=== PATIENT | male | born 1990 | race Caucasian/White ===

== ENCOUNTER 2022-11-26 19:23 | Emergency (ER) | payer OTHER, SELFPAY ==
[2022-11-26] VITALS (8 sets, daily range): BP systolic 118–150; BP diastolic 75–94; PULSE 58–79; RESP 14–19; TEMP 36.3; O2SAT 97–100
--- NOTE | ~2022-11-26 | XR_ITS ---
EXAMINATION: XR chest 2V Exam Date/Time: 11/26/2022 19:33 CDT HISTORY: chest pain Comparison: None. RESULT: Lines, tubes, and devices: None. Lungs and pleura: Clear. Cardiomediastinal silhouette: Unremarkable. Other: No acute osseous or upper abdominal finding. IMPRESSION: No acute cardiopulmonary process. Reviewed, dictated and finalized at location K.
--- NOTE | 2022-11-26 19:30 | ECG_ITS ---
Measurements Intervals [place] Rate: 70 P: 12 AL: 156 QRS: 54 QRSD: 93 T: 59 QT: 360 QTc: 390 Interpretive Statements SINUS RHYTHM NO PREVIOUS ECG AVAILABLE FOR COMPARISON Electronically Signed On 11-27-2022 15:55:56 CDT by Sheng Story M.D.
[2022-11-26 19:49] LABS: Basophils Absolute Auto 0.1 K/mm3 (0.0-0.1); Basophils Percent Auto 0.6 % (0.2-1.2); Eosinophils Absolute Auto 0.3 K/mm3 (0-0.3); Eosinophils Percent Auto 3.5 % (0-4.4); Hemoglobin 15.4 g/dL (14.0-18.0); Immature Granulocyte Absolute 0.05 K/mm3 (0.00-0.031); Immature Granulocyte Percent A 0.6 % (0-0.5); Lymphocytes Absolute Auto 2.17 K/mm3 (0.9-3.2); Lymphocytes Percent Auto 24.6 % (18.3-44.2); Mean Corpuscular HGB Conc 33.5 g/dl (32-36); Mean Corpuscular Hemoglobin 28.8 pg (26-34); Mean Corpuscular Volume 86.1 fl (80-100); Mean Platelet Volume 8.9 fl (7.4-10.4); Monocytes Absolute Auto 0.4 K/mm3 (0.1-0.6); Monocytes Percent Auto 4.2 % (2.6-8.5); Neutrophils Absolute Auto 5.9 K/mm3 (1.3-6.7); Neutrophils Percent Auto 66.5 % (45.5-73.1); Platelet Count Result 413 k/mm3 (150-375); Red Blood Count 5.34 M/mm3 (4.6-6.20); Red Cell Distribution Width 12.9 % (11.5-14.5); White Blood Count 8.8 K/mm3 (4.5-10.0)
[2022-11-26 19:59] LABS: Alanine Aminotransferase 37 U/L (6-50); Albumin Level 4.2 g/dL (3.5-5.1); Alkaline Phosphatase 65 U/L (38-126); Anion Gap 9 mmol/L (8-16); Aspartate Amino Transferase 26 U/L (17-59); Bilirubin,Total 0.6 mg/dL (0.2-1.3); Blood Urea Nitrogen 12 mg/dL (9-20); Calcium 8.8 mg/dL (8.4-10.2); Carbon Dioxide 27 mmol/L (22-30); Chloride 101 mmol/L (98-107); Estimated CRCL calculation 138 ml/min; Estimated Glomerular Filt Rate > 60; Glucose 115 mg/dL (65-110); Lipase 78 U/L (23-300); Potassium 3.5 mmol/L (3.4-5.0); Sodium 137 mmol/L (137-145)
[2022-11-26 20:03] LABS: INR 1.1; Partial Thromboplastin Time 27.5 SECONDS (22.3-36.8); Prothrombin Time 14.5 Seconds (11.1-14.7)
[2022-11-26 20:11] LABS: Troponin I < 0.012 ng/mL (0.000-0.034)
--- NOTE | 2022-11-26 22:20 | ED.CHESTPAIN ---
HPI - Chest Pain General Chief Complaint: Chest Pain Stated Complaint: cp Time Seen by Provider: 11/26/22 21:40 History of Present Illness HPI narrative: Patient presents to the emergency department with intermittent episodes of right-sided chest pain that started around 1 PM. Pain intermittent and nothing alleviates or exacerbates the pain. Denies other review of systems. Pain has not had pain in the past. He has a significant family history of CAD patient is overall Related Data Allergies Allergy/AdvReac Type Severity Reaction Status Date / Time No Known Allergies Allergy Verified 11/27/22 00:44 Review of Systems Review of Systems: Review of systems negative except what is documented in the HPI Exam Narrative: GENERAL: Well-appearing, well-nourished, and in no acute distress. HEAD: Normocephalic, atraumatic. EYES: PERRLA and EOMI. ENT: Nares clear, no rhinorrhea or epistaxis. Mucous membranes moist. NECK: Supple. CHEST: Clear to auscultation. No respiratory distress. HEART: Regular rate and rhythm. ABDOMEN: Soft, nontender, nondistended. EXTREMITIES: Normal range of motion. No edema. SKIN: Warm, dry, no rash. NEURO: No focal deficits. Alert and oriented x3. PSYCH: Normal mood and affect. Course Vital Signs Vital signs: Vital Signs Temperature 36.3 C L 11/26/22 19:27 Pulse Rate 79 11/26/22 19:27 Respiratory Rate 18 11/26/22 19:27 Blood Pressure 150/94 H 11/26/22 19:27 Pulse Oximetry 100 11/26/22 19:27 Oxygen Delivery Room Air 11/26/22 19:27 Temperature 36.3 C L 11/26/22 19:27 Pulse Rate 63 11/26/22 22:45 Respiratory Rate 18 11/26/22 22:45 Blood Pressure 118/75 11/26/22 21:46 Pulse Oximetry 98 11/26/22 22:45 Oxygen Delivery Room Air 11/26/22 19:27 MDM - Chest Pain MDM Narrative Medical decision making narrative: Patient has not had recurrence of his chest pain. Initial and repeat troponin normal. EKG normal sinus rhythm. Heart score 0. Patient is 32 years old. Advised to follow-up with his primary care provider. Lab Data 11/26/22 19:37 11/26/22 19:37 Labs: Lab Results 11/26/22 11/26/22 Range/Units 19:37 22:25 WBC 8.8 (4.5-10.0) K/mm3 RBC 5.34 (4.6-6.20) M/mm3 Hgb 15.4 (14.0-18.0) g/dL Hct 46.0 (42.0-52.0) % MCV 86.1 (80-100) fl MCH 28.8 (26-34) pg MCHC 33.5 (32-36) g/dl RDW 12.9 (11.5-14.5) % Plt Count 413 H (150-375) k/mm3 MPV 8.9 (7.4-10.4) fl Immature Gran % (Auto) 0.6 H (0-0.5) % Neut % (Auto) 66.5 (45.5-73.1) % Lymph % (Auto) 24.6 (18.3-44.2) % [place] % (Auto) 4.2 (2.6-8.5) % Eos % (Auto) 3.5 (0-4.4) % Baso % (Auto) 0.6 (0.2-1.2) % Lymph # (Auto) 2.17 (0.9-3.2) K/mm3 [place] # (Auto) 0.4 (0.1-0.6) K/mm3 Eos # (Auto) 0.3 (0-0.3) K/mm3 Baso # (Auto) 0.1 (0.0-0.1) K/mm3 Abs Immat Gran (auto) 0.05 H (0.00-0.031) K/mm3 Absolute Neuts (auto) 5.9 (1.3-6.7) K/mm3 Absolute Nucleated RBC 0.0 (0.0-0.012) K/mm3 Nucleated RBC % 0.0 (0.0-0.2) % PT 14.5 (11.1-14.7) Seconds INR 1.1 APTT 27.5 (22.3-36.8) SECONDS Sodium 137 (137-145) mmol/L Potassium 3.5 (3.4-5.0) mmol/L Chloride 101 (98-107) mmol/L Carbon Dioxide 27 (22-30) mmol/L Anion Gap 9 (8-16) mmol/L BUN 12 (9-20) mg/dL Creatinine 0.90 (0.7-1.3) mg/dL Estim Creat Clear Calc 138 ml/min Estimated GFR > 60 (59 - ) Glucose 115 H (65-110) mg/dL Calcium 8.8 (8.4-10.2) mg/dL Total Bilirubin 0.6 (0.2-1.3) mg/dL AST 26 (17-59) U/L ALT 37 (6-50) U/L Alkaline Phosphatase 65 (38-126) U/L Troponin I < 0.012 < 0.012 (0.000-0.034) ng/mL Total Protein 7.0 (6.3-8.2) g/dL Albumin 4.2 (3.5-5.1) g/dL Lipase 78 (23-300) U/L Discharge Plan Discharge Clinical Impression: Chest pain Qualifiers: Chest pain type: unspecified Qualified Code(s): R07.9 - Chest pain, unspecified Patient Di
[2022-11-26 22:55] LABS: Troponin I < 0.012 ng/mL (0.000-0.034)
--- NOTE | 2022-11-26 22:56 | PC.NURSE ---
Report given to CLARENCE Montalvo, no questions. Care of pt transferred.
[2022-11-27 01:23] VITALS: BP 127/87; PULSE 78; RESP 20; O2SAT 100
== END 2022-11-27 01:24 | disposition home or self-care (01) ==
PROVIDERS: Student in an Organized Health Care Education/Training Program; Emergency Provider Emergency Medicine
DX: R07.9 Chest pain, unspecified (principal)
CPT/HCPCS: 36415; 71046; 80053; 83690; 84484; 85025; 85610; 85730; 93005; 99284

== ENCOUNTER 2023-03-23 18:39 | Emergency (ER) | payer OTHER, SELFPAY ==
[2023-03-23] VITALS (19 sets, daily range): BP systolic 109–140; BP diastolic 66–113; PULSE 75–102; RESP 12–22; TEMP 36.4–36.6; O2SAT 94–99
--- NOTE | ~2023-03-23 | CT_ITS ---
EXAMINATION: CT cervical spine wo con DATE: 03/23/2023 20:26 INDICATION: neck pain s/p syncope TECHNIQUE: Computed tomography (CT) of the cervical spine was performed without intravenous contrast. Automated exposure control and iterative reconstruction technique were employed. The dose-length pro duct was 560.11 mGy-cm. COMPARISON: CT brain, same date. FINDINGS: Vertebral Body Alignment: Intact. Craniocervical and atlantoaxial alignment: No significant degenerative change. Alignment intact. Osseous structures/fracture: 7 mm lytic lesion in the posterior aspect of the C5 vertebral body. No evidence of acute fracture. Cervical soft tissues: The paraspinal soft tissues planes are maintained. Possible solid 1.8 cm thyro id nodule at the isthmus, to the right of midline. Degenerative changes: No significant degenerative changes. IMPRESSION: No acute fracture or traumatic malalignment in the cervical spine. 7 mm lytic lesion in C5. Correlate for history of primary malignancy. Consider bone scanning and MR c ervical spine for further evaluation. 1.8 cm possible thyroid isthmus nodule, recommend outpatient pelvic ultrasound for further evaluation . Reviewed, dictated and finalized at location K. CTOR PAID MEDIA IMPRESSION: No acute fracture or traumatic malalignment in the cervical spine. 7 mm lytic lesion in C5. Correlate for history of primary malignancy. Consider bone scanning and MR cervical spine for further evaluation. 1.8 cm possible thyroid isthmus nodule, recommend outpatient pelvic ultrasound for further evaluation.
--- NOTE | ~2023-03-23 | XR_ITS ---
EXAMINATION: XR chest 1V portable Exam Date/Time: 03/23/2023 19:33 HOTEL REGISTRATION CLERK HISTORY: cough Comparison: 11/26/2022. RESULT: Lines, tubes, and devices: None. Lungs and pleura: Clear. Cardiomediastinal silhouette: Stable. Other: No acute osseous or upper abdominal finding. IMPRESSION: No acute cardiopulmonary process. Reviewed, dictated and finalized at location K. L REGISTRATION CLERK
--- NOTE | ~2023-03-23 | CT_ITS ---
EXAMINATION: CT brain wo con DATE: 03/23/2023 20:26 INDICATION: syncope, head injury . TECHNIQUE: Computed tomography (CT) of the head was performed without intravenous contrast. The mA wa s adjusted according to patient size. Iterative reconstruction technique was employed. The dose-lengt h product was 605.33 mGy-cm. COMPARISON: None. FINDINGS: No acute intracranial hemorrhage or extra-axial fluid collection. No hydrocephalus, mass, or herniation. No acute ischemic infarct. Unremarkable dural venous sinus attenuation. No acute osseous abnormality. 2 frontal osteomas. Multiple subcutaneous scalp nodules/cysts, some wit h calcification, the largest measuring 2.6 cm in the left parietal scalp. The aerated spaces are clear. IMPRESSION: No acute intracranial process. 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 Reviewed, dictated and finalized at location K. NG PAINTER IMPRESSION: No acute intracranial process. 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
--- NOTE | 2023-03-23 18:43 | ECG_ITS ---
Measurements Intervals [place] Rate: 79 P: 31 VT: 152 QRS: 59 QRSD: 94 T: 41 QT: 349 QTc: 402 Interpretive Statements SINUS RHYTHM COMPARED TO ECG 11/26/2022 19:36:59 NO SIGNIFICANT CHANGES Electronically Signed On 03-24-2023 11:35:58 AERIAL HURRICANE HUNTER by Gucci Reyez M.D.
[2023-03-23 19:15] LABS: Basophils Percent Auto 0.7 % (0.2-1.2); Eosinophils Absolute Auto 0.3 K/mm3 (0-0.3); Hematocrit 45.5 % (42.0-52.0); Hemoglobin 14.9 g/dL (14.0-18.0); Immature Granulocyte Absolute 0.02 K/mm3 (0.00-0.031); Immature Granulocyte Percent A 0.3 % (0-0.5); Lymphocytes Absolute Auto 0.87 K/mm3 (0.9-3.2); Lymphocytes Percent Auto 15.1 % (18.3-44.2); Mean Corpuscular HGB Conc 32.7 g/dl (32-36); Mean Corpuscular Hemoglobin 27.7 pg (26-34); Mean Corpuscular Volume 84.7 fl (80-100); Mean Platelet Volume 9.1 fl (7.4-10.4); Monocytes Absolute Auto 0.4 K/mm3 (0.1-0.6); Monocytes Percent Auto 7.5 % (2.6-8.5); Neutrophils Absolute Auto 4.1 K/mm3 (1.3-6.7); Neutrophils Percent Auto 71.4 % (45.5-73.1); Platelet Count Result 279 k/mm3 (150-375); Red Blood Count 5.37 M/mm3 (4.6-6.20); Red Cell Distribution Width 13.2 % (11.5-14.5); White Blood Count 5.8 K/mm3 (4.5-10.0)
[2023-03-23 19:24] LABS: Alanine Aminotransferase 36 U/L (6-50); Albumin Level 3.7 g/dL (3.5-5.1); Alkaline Phosphatase 58 U/L (38-126); Anion Gap 7 mmol/L (8-16); Aspartate Amino Transferase 35 U/L (17-59); Bilirubin,Total 0.5 mg/dL (0.2-1.3); Blood Urea Nitrogen 6 mg/dL (9-20); Calcium 8.4 mg/dL (8.4-10.2); Carbon Dioxide 26 mmol/L (22-30); Chloride 104 mmol/L (98-107); Estimated CRCL calculation 124 ml/min; Estimated Glomerular Filt Rate > 60; Glucose 116 mg/dL (65-110); Potassium 3.3 mmol/L (3.4-5.0); Sodium 137 mmol/L (137-145)
--- NOTE | 2023-03-23 19:25 | PC.NURSE ---
Report received from CLARENCE Mobley. Assumed care of patient at this time.
[2023-03-23] MEDS: SODIUM CHLORIDE 0.9% IV 1,000 ML 999 ML IV CONT ×2 (19:27→21:03)
[2023-03-23] MEDS: ONDANSETRON INJ 4 MG/2 ML VIAL IV PUSH (19:28)
[2023-03-23 19:45] LABS: Appearance Urine Clear (Clear); Bacteria Urine None Seen /hpf; Bilirubin Urine Negative (Negative); Blood Urine Negative (Negative); Color Urine Yellow (Yellow); Glucose Urine UA Trace mg/dL (Negative); Ketones Urine Negative (Negative); Leukocyte Esterase Ur Negative LEU/UL (Negative); Nitrate Urine Negative (Negative); Non Pathogenic Casts 0-2; Protein Urine Trace mg/dL (Negative); RBC Urine 0-2 /hpf (0-2); Specific Grav Ur 1.025 (1.001-1.035); Squamous Epithelial Cell Urine None seen /hpf (Few); WBC Urine 0-5 /hpf; pH Urine 5.5 (5.0-9.0)
[2023-03-23 19:54] LABS: Add Urine Microscopic? YES
[2023-03-23 20:06] LABS: Lactic Acid Reflex 1.3 mmol/L (0.7-2.0); Lipase 82 U/L (23-300)
[2023-03-23 20:19] LABS: Troponin I < 0.012 ng/mL (0.000-0.034)
[2023-03-23 20:33] LABS: Influenza A QL RT-PCR Negative (Negative); Influenza B QL RT-PCR Positive (Negative); RSV RNA, RT-PCR Negative (Negative); SARS-CoV-2 RNA PCR Negative (Negative)
--- NOTE | 2023-03-23 21:00 | ED.GENADULT ---
HPI - General Adult General Chief complaint: Syncope Stated complaint: syncopal episode Time Seen by Provider: 03/23/23 19:10 History of Present Illness HPI narrative: patient 33-year-old gentleman who presents emergency department with chief complaint of syncope. Patient reports over the last several days he has not been feeling well as had some vomiting and diarrhea patient reports she has also had a cough has been productive of phlegm. The patient reports he has not been checking his temperature at home but has just felt generally unwell. Patient states that he has not been eating and drinking much the patient reports that he got up felt lightheaded and started feeling nauseated and tried to go the bathroom as he was going to the bathroom he became more lightheaded and then woke up on the ground on the way to the bathroom. Patient reports that he feels sore in his neck and reports that he did strike his head whenever he fell. Related Data Allergies Allergy/AdvReac Type Severity Reaction Status Date / Time No Known Allergies Allergy Verified 03/23/23 19:05 Review of Systems Review of Systems: A 10 system review of systems was completed on the patient and is negative except for what is stated in the HPI. Nursing and ancillary documentation was reviewed. Exam Narrative: GENERAL: Well-appearing, well-nourished, and in no acute distress. HEAD: Normocephalic, atraumatic. EYES: PERRLA and EOMI. ENT: Nares clear, no rhinorrhea or epistaxis. Mucous membranes moist. NECK: Supple. CHEST: Clear to auscultation. No respiratory distress. HEART: Regular rate and rhythm. No murmur heard. Normal peripheral pulses. ABDOMEN: Soft, nontender, nondistended, normal active bowel sounds. EXTREMITIES: Normal range of motion. No edema. SKIN: Warm, dry, no rash. NEURO: No focal deficits. Alert and oriented x3. PSYCH: Normal mood and affect. Course Vital Signs Vital signs: Vital Signs Temperature 36.6 C 03/23/23 18:41 Pulse Rate 102 H 03/23/23 18:41 Respiratory Rate 16 03/23/23 18:41 Blood Pressure 140/72 03/23/23 18:41 Pulse Oximetry 99 03/23/23 18:41 Temperature 36.6 C 03/23/23 18:41 Pulse Rate 77 03/23/23 20:31 Respiratory Rate 14 03/23/23 20:31 Blood Pressure 123/72 03/23/23 20:31 Pulse Oximetry 98 03/23/23 20:31 Oxygen Delivery Room Air 03/23/23 19:02 Medical Decision Making [facility] Narrative Medical decision making narrative: Differential diagnosis includes vasovagal syncope, dehydration, electrolyte abnormality, viral syndrome, pneumonia, UTI, cervical spine injury, head injury EKG was obtained showed no dysrhythmia and no acute ischemic changes. 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 Laboratory studies were obtained which showed a positive influenza B test urinalysis showed trace glucose but otherwise normal troponin was negative potassium was 3.3 lactate was normal CBC showed a white count of 5.8 hemoglobin was 14.9. The patient had orthostatic vital signs which showed a increased heart rate with standing the patient was given 2 L of normal saline boluses Vital Signs Vital Signs: Vital Signs Temperature 36.6 C 03/23/23 18:41 Pulse Rate 102 H 03/23/23 18:41 Respiratory Rate 16 03/23/23 18:41 Blood Pressure 140/72 03/23/23 18:41 Pulse Oximetry 99 03/23/23 18:41 Temperature 36.6 C 03/23/23 18:41 Pulse Rate 77 03/23/23 20:31 Respiratory Rate 14 03/23/23 20:31 Blood Pressure 123/72 03/23/23 20:31 Pulse Oximetry 98 03/23/23 20:31 Oxygen Delivery Room Air 03/23/23 19:02 Lab Data 03/23/23 18:59 03/23/23 18:59 Labs: Lab Results 03/23/23 03/23/23 03/23/23 Range/Units 18:59 19:27 19:43 WBC 5.8 (4.5-10.0) K/mm3 RBC 5.37 (4
--- NOTE | 2023-03-23 21:08 | PC.NURSE ---
Patient states he is feeling better, requesting water. ERP gave VORB to give water and crackers.
== END 2023-03-23 22:58 | disposition home or self-care (01) ==
PROVIDERS: Emergency Medicine; Emergency Provider Emergency Medicine
DX: J10.1 Influenza due to other identified influenza virus with other respiratory manifestations (principal); R55 Syncope and collapse; Z20.822 Contact with and (suspected) exposure to COVID-19; M89.9 Disorder of bone, unspecified; R93.89 Abnormal findings on diagnostic imaging of other specified body structures; D16.4 Benign neoplasm of bones of skull and face; L72.0 Epidermal cyst
CPT/HCPCS: 36415; 70450; 71045; 72125; 80053; 81001; 83605; 83690; 83735; 84484; 85025; 87637; 93005; 96361; 96374; 99284; J2405; J7030

== ENCOUNTER 2024-05-04 09:36 | Emergency (ER) | payer OTHER, SELFPAY ==
--- NOTE | ~2024-05-04 | CT_ITS ---
EXAMINATION: CTA chest PE protocol DATE: 05/04/2024 15:36 CDT INDICATION: Mid sternal chest pain radiating to the back TECHNIQUE: Computed tomographic angiography (CTA) of the chest was performed with 100 mL Omnipaque-35 0 intravenous contrast. The dose-length product was 953.73 mGy-cm. Maximum intensity projection 3D-re constructions of the aorta and other arteries were constructed by the technologist on a separate work station. COMPARISON: None. FINDINGS/OBSERVATIONS: PULMONARY ARTERIES: No filling defect is identified within the main or proximal pulmonary artery. The main pulmonary artery is not enlarged. THORACIC AORTA: No aneurysmal dilatation or dissection is present. The great vessels are intact LUNGS: Lungs are clear. MEDIASTINUM: No morphologically suspicious or pathologically enlarged lymph nodes are identified with in the mediastinum or bilateral axilla. BONES OF THE CHEST: No acute fracture. No significant degenerative disease. No lytic or blastic lesions. HEART: The heart is of normal size, without pericardial effusion. IMPRESSION: No pulmonary embolus. No thoracic aortic dissection. The lungs are clear. Reviewed, dictated and finalized at location A.
--- NOTE | ~2024-05-04 | XR_ITS ---
EXAMINATION: XR chest 2V DATE: 05/04/2024 10:26 INDICATION: Chest pain and shortness of breath TECHNIQUE: PA and lateral views of the chest were obtained. COMPARISON: Chest radiograph dated 03/23/2023 FINDINGS: Mild streaky bibasilar atelectasis. No other airspace opacities, pulmonary edema, pleural effusion or pneumothorax. The cardiomediastinal silhouette is normal. Visualized bones and soft tissues are unre markable. IMPRESSION: 1. Mild bibasilar atelectasis. Reviewed, dictated and finalized at location A.
--- NOTE | ~2024-05-04 | US_ITS ---
EXAM: ABDOMEN ULTRASOUND HISTORY: pain COMPARISON: None. Reference is made to a CT examination of the chest, performed the same day (approxi mately 5 minutes earlier) FINDINGS: LIVER: The liver is increased in echogenicity and unremarkable size measuring 18 cm in longitudinal d imension. The portal vein is patent, demonstrating hepatopedal flow. GALLBLADDER: A single lamellated stone is identified within the gallbladder, which is otherwise unrem arkable. No gallbladder wall thickening or pericholecystic fluid. BILE DUCTS: Common bile duct measures 3.9mm. PANCREAS: Limited evaluation of the pancreas secondary to overlying bowel gas RIGHT KIDNEY: 10.3 cm in length. No hydronephrosis. VASCULATURE : The abdominal aorta is nonaneurysmal. IMPRESSION: Cholelithiasis, without ultrasound evidence of cholecystitis. Fatty infiltration of the liver. Reviewed, dictated and finalized at location A.
--- NOTE | 2024-05-04 09:37 | ECG_ITS ---
Test Date: 2024-05-04 09:42:00 Measurements Intervals [place] Rate: 69 P: 30 CO: 158 QRS: 43 QRSD: 94 T: 50 QT: 357 QTc: 384 Interpretive Statements SINUS RHYTHM WITH SINUS ARRHYTHMIA No previous ECG available for comparison Electronically Signed On 05-05-2024 16:29:41 CDT by Sheng Story M.D.
[2024-05-04 09:50] VITALS: BP 142/89; PULSE 69; RESP 18; TEMP 36.3; O2SAT 99
[2024-05-04 09:57] LABS: Basophils Percent Auto 0.5 % (0.2-1.2); Eosinophils Absolute Auto 0.2 K/mm3 (0-0.3); Eosinophils Percent Auto 2.4 % (0-4.4); Hematocrit 46.3 % (42.0-52.0); Hemoglobin 15.6 g/dL (14.0-18.0); Immature Granulocyte Absolute 0.02 K/mm3 (0.00-0.031); Immature Granulocyte Percent A 0.2 % (0-0.5); Lymphocytes Absolute Auto 1.48 K/mm3 (0.9-3.2); Lymphocytes Percent Auto 17.2 % (18.3-44.2); Mean Corpuscular HGB Conc 33.7 g/dl (32-36); Mean Corpuscular Hemoglobin 28.6 pg (26-34); Mean Corpuscular Volume 84.8 fl (80-100); Mean Platelet Volume 8.9 fl (7.4-10.4); Monocytes Absolute Auto 0.4 K/mm3 (0.1-0.6); Neutrophils Absolute Auto 6.4 K/mm3 (1.3-6.7); Neutrophils Percent Auto 74.7 % (45.5-73.1); Platelet Count Result 417 k/mm3 (150-375); Red Blood Count 5.46 M/mm3 (4.6-6.20); White Blood Count 8.6 K/mm3 (4.5-10.0)
[2024-05-04 10:12] LABS: Partial Thromboplastin Time 24.9 Seconds (22.3-36.8); Prothrombin Time 13.8 Seconds (11.1-14.7)
--- OUTSIDE RECORDS SUMMARY | 2024-05-04 10:38 | XMS_ITS | Clinical Summary ---
Author Organization [facility] [place] [address] [facility] [address] Address [address] [place] [address] Care Team Providers Care Miniature Model Maker Name Role Phone Crystal Jeter MD Primary Care Provi luis Allergies No known active allergies Medications sertraline (ZOLOFT) 25 mg tabletIndication s:Adjustment disorder with mixed anxiety and depressed mood Take 1 tablet (25 mg total) by mouth daily 90 tablet 11/08/2022 Active Active Problems Problem Noted Date Diagnosed Date Adjustment disorder with mixed anxiety and depre ssed mood 11/07/2022 Assessment & Plan (11/07/2022 11:22 AM CDT): Chronic, uncontrolled Will start Zoloft 25 mg daily Continue healthy changes to boost mood- exercise, healthy diet, using support structures that are in place, and good sleep habits If mood worsens or changes, please contact the office Anything emergent, to the er Update me in six weeks Call for questions or concerns Chest pain 11/07/2022 Class 2 obesity due to exces s calories without serious comorbidity with body mass index (BMI) of 39.0 to 39.9 in adult 11/07/2022 Assessment & Plan (11/07/2022 12:22 PM CDT): BMI Follow-up includes: nutrition counseling. Immunizations Immunization Administration Dates Next Due Influenza, Unspecified 12/04/2022(Deferr ed: Patient Refused),11/18/2021(Deferred: Patient Refused),11/18/2020(Deferred: Patient Refused) Social History Tobacco Use Types Packs/Day Years Used Date Smoking Tobacco: Unknown Smokeless Tobacco: Current Chew Tobacco Cessation:Ready to Q uit: Not Asked; Counseling Given: Not Answered PHQ-2 Answer Date Recorded PHQ-2 Total Score (If total score is 3 or more points, staff should administer the PHQ-9) 3 11/07/2022 Personal Safety Answer Date Recorded Getting School Help Needed Not on file 11/29 Sex and Gender Information Value Date Recorded Sex Assigned at Not on file Legal Sex Male 9:15 AM CDT Gender Identity Not on file Sexual Orientation Not on file Obstetrics History Last Filed Vital Signs Vital Sign Reading Time Taken Comments Blood Pressure 112/78 02/28/2023 10:07 AM PHYSICAL THERAPY PROFESSOR Pulse 86 02/28/2023 10:07 AM PHYSICAL THERAPY PROFESSOR Temperature 36.7 C (98.1 F) 11/26/2022 2:22 PM CDT Respiratory Rate 16 11/26/2022 2:22 PM CDT Oxygen Saturation 98% 02/28/2023 10: 07 AM PHYSICAL THERAPY PROFESSOR Inhaled Oxygen Concentration - - Weight 124.7 kg (274 lb 14.4 oz) 2023 10:07 AM PHYSICAL THERAPY PROFESSOR Height 177.8 cm (5' 10 ) 02/28/2023 10: 07 AM PHYSICAL THERAPY PROFESSOR Body Mass Index 39.44 02/28/2023 10:07 AM PHYSICAL THERAPY PROFESSOR Plan of Treatment Health Maintenance Due Date Last Done Comments Hepatitis C Screening 1991 Varicella Vaccines (1 of 2 - 13+ 2-dose series) 02/21/2004 Regular Well Visit/Exam 18-64 2009 DTaP/Tdap/Td Vaccine (7 - Tdap) 08/25/2015 08/24/2005, 06/09/1996, 05/21/1992, Additional history exists Influenza Vaccine (#1) 2023 Depression Screening 11/08/2023 11/07/2022, 11/08/19 23 Hepatitis B Screening Completed 12/25/1996 , 07/16/1996, 06/09/1996 HPV Vaccines Aged Out No longer eligi ble based on patient's age to complete this topic Pneumococcal vaccine <65 Aged Out No longer eligible based on patient's age to complete this topic [place] [address] [place] [address] HEALTHCARE HMO [facility] [employer] Address: [address] [place] [address] [facility] HMO Care Teams Miniature Model Maker Relationship Specialty Start Date End Date Crystal Jeter MD [facility] [address] [place] [address] PCP - General Family Medicine 11/07/22
--- OUTSIDE RECORDS SUMMARY | 2024-05-04 10:38 | XMS_ITS | Referral Summary ---
Author Organization [facility] [place] [address] [facility] [address] Address [address] [facility] [place] [address] Care Team Providers Care Artificial Glass Eye Maker Name Role Phone Crystal Jeter MD [...] on file Sexual Orientation Not on file Last Filed Vital Signs Vital Sign Reading Time Taken Comments Blood Pressure 112/78 02/28/2023 10:07 AM CHASSIS ENGINEER Pulse 86 02/28/2023 10:07 AM CHASSIS ENGINEER Temperature 36.7 C (98.1 F) 11/26/2022 2:22 PM CDT Respiratory Rate 16 11/26/2022 2:22 PM CDT Oxygen Saturation 98% 02/28/2023 10: 07 AM CHASSIS ENGINEER Inhaled Oxygen Concentration - - Weight 124.7 kg (274 lb 14.4 oz) 2023 10:07 AM CHASSIS ENGINEER Height 177.8 cm (5' 10 ) 02/28/2023 10: 07 AM CHASSIS ENGINEER Body Mass Index 39.44 02/28/2023 10:07 AM CHASSIS ENGINEER Plan of Treatment [place] [address] [facility] [employer] PLANS Address: [facility] [id number] [place] [address] [facility] [employer] Address: [facility] [id number] [place] [address] [facility] [employer] [facility] Address: [address] [place] [address] [facility] HMO [facility]/PP[facility] Address: [address] [place] [address] Care Teams Artificial Glass Eye Maker Relationship Specialty Start Date End Date Crystal Jeter MD [address] [place] [address] PCP - General Family Medicine 11/07/22
[2024-05-04 12:06] VITALS: BP 126/85; PULSE 68; RESP 16; O2SAT 99
--- NOTE | 2024-05-04 12:08 | ED_ITS ---
HPI - Chest Pain General Chief Complaint: Chest Pain <Janet Aguirre APRN - Last Filed: 05/04/24 12:12> Stated Complaint: chest pain <Janet Aguirre APRN - Last Filed: 05/04/24 12:12> Time Seen by Provider: 05/04/24 12:00 <Janet Aguirre APRN - Last Filed: 05/04/24 12:12> Focused HPI: Patient is a 34-year-old male presents to the ER with chest pain. He reports he had a GI bug that started this morning around 830. He reports he took Tylenol and went back to work within started experiencing chest pain. Patient reports the chest pain is ?sharp, poking, and radiates to my back. He endorses nausea and shortness of breath, but no vomiting. Patient reports the chest pain is intermittent. He reports he had similar instance approximately 1 year ago and he is advised to follow-up with cardiology. Patient has no other medical history and reports he not take any daily medications. GENERAL: Well-appearing, well-nourished, and in no acute distress. HEAD: Normocephalic, atraumatic. CHEST: Clear to auscultation. ?No respiratory distress. HEART: Regular rate and rhythm.? NEURO: ?Alert and oriented x3. Patient screened in triage and initial orders placed.? ?Additional care and disposition to be based upon?diagnostic testing and treatment. <Janet Aguirre APRN - Last Filed: 05/04/24 12:12> History of Present Illness HPI narrative: Agree with HPI. Symptoms resolved after 2 hours. Had some pain with deep breath. No hemoptysis. <Quinton Onofre MD - Last Filed: 05/04/24 17:10> Related Data Allergies/Adverse Reactions: Allergies Allergy/AdvReac Type Severity Reaction Status Date / Time No Known Allergies Allergy Verified 03/23/23 19:05 <Janet Aguirre APRN - Last Filed: 05/04/24 12:12> Review of Systems 2 Review of Systems: All systems reviewed & are unremarkable except as noted in HPI and below <Quinton Onofre MD - Last Filed: 05/04/24 17:10> Constitutional: Constitutional: Reports no additional constitutional complaints <Quinton Onofre MD - Last Filed: 05/04/24 17:10> ENT: Reports system reviewed and no additional complaints, except as documented <Quinton Onofre MD - Last Filed: 05/04/24 17:10> Cardiovascular: Cardiovascular: Reports no additional cardiovascular complaints <Quinton Onofre MD - Last Filed: 05/04/24 17:10> Respiratory: Respiratory: Reports no additional respiratory complaints < Quinton Onofre MD - Last Filed: 05/04/24 17:10> Genitourinary: Genitourinary: Reports no additional male genitourinary complaints <Quinton Onofre MD - Last Filed: 05/04/24 17:10> PMFSH Past Medical History Medical History: Medical History (Updated 05/04/24 @ 17:07 by Quinton Onofre MD) Healthy adult male <Janet Aguirre, LEAD DATABASE ADMINISTRATOR - Last Filed: 05/04/24 12:12> Surgical History Surgical History: Surgical History (Updated 05/04/24 @ 17:07 by Quinton Onofre MD) History of appendectomy <Janet Aguirre, LEAD DATABASE ADMINISTRATOR - Last Filed: 05/04/24 12:12> Exam 2 Narrative: GENERAL: Well-appearing, well-nourished, and in no acute distress. HEAD: Normocephalic, atraumatic. ENT: Mucous membranes moist. CHEST: Clear to auscultation. No respiratory distress. HEART: Regular rate and rhythm. Normal peripheral pulses. ABDOMEN: Soft, nontender, nondistended. EXTREMITIES: Normal range of motion. No edema. SKIN: Warm, dry, no rash. NEURO: Alert and oriented x3. PSYCH: Normal mood and affect. <Quinton Onofre MD - Last Filed: 05/04/24 17:10> Course Course Emergency Course: No PE. Patient does have cholelithiasis so he may be experiencing biliary colic. Patient given precautions. Follow-up with general surgery. Troponin negative x2. <Quinton Onofre MD - Last Filed: 05/04/24 17:10> Vital Signs Vital signs: Vital Signs Temperature 97.4 F L 05/04/24 09:50 Pulse Rate 69 05/04/24 09:50 Respiratory Rate 18 05/04/24 09:50 Blood Pressure 142/89 H 05/04/24 09:50 Pulse Oximetry 99 05/04/24 09:50 Oxygen Delivery Room Air 05/04/24 09:50 Temperature 97.4 F L 05/04/24 09:50 Pulse Rate 70 05/04/24 16:04 Respiratory Rate 18 05/04/24 16:04 Blood Pressure 126/80 05/04/24 16:04 Pulse Oximetry 97 05/04/24 16:04 Oxygen Delivery Room Air 05/04/24 09:50 <Janet Aguirre LEAD DATABASE ADMINISTRATOR - Last Filed: 05/04/24 12:12> Vital Signs Temperature 97.4 F L 05/04/24 09:50 Pulse Rate 69 05/04/24 09:50 Respiratory Rate 18 05/04/24 09:50 Blood Pressure 142/89 H 05/04/24 09:50 Pulse Oximetry 99 05/04/24 09:50 Oxygen Delivery Room Air 05/04/24 09:50 Temperature 97.4 F L 05/04/24 09:50 Pulse Rate 70 05/04/24 16:04 Respiratory Rate 18 05/04/24 16:04 Blood Pressure 126/80 05/04/24 16:04 Pulse Oximetry 97 05/04/24 16:04 Oxygen Delivery Room Air 05/04/24 09:50 <Quinton Onofre MD - Last Filed: 05/04/24 17:10> MDM - Chest Pain Lab Data Result diagrams: 05/04/24 09:47 05/04/24 11:59 <Janet Aguirre APRN - Last Filed: 05/04/24 12:12> Labs: Lab Results 05/04/24 05/04/24 05/04/24 Range/Units 09:47 11:59 15:02 WBC 8.6 (4.5-10.0) K/mm3 RBC 5.46 (4.6-6.20) M/mm3 Hgb 15.6 (14.0-18.0) g/dL Hct 46.3 (42.0-52.0) % MCV 84.8 (80-100) fl MCH 28.6 (26-34) pg MCHC 33.7 (32-36) g/dl RDW 13.0 (11.5-14.5) % Plt Count 417 H (150-375) k/mm3 MPV 8.9 (7.4-10.4) fl Immature Gran % (Auto) 0.2 (0-0.5) % Neut % (Auto) 74.7 H (45.5-73.1) % Lymph % (Auto) 17.2 L (18.3-44.2) % Robertson % (Auto) 5.0 (2.6-8.5) % Eos % (Auto) 2.4 (0-4.4) % Baso % (Auto) 0.5 (0.2-1.2) % Lymph # (Auto) 1.48 (0.9-3.2) K/mm3 Robertson # (Auto) 0.4 (0.1-0.6) K/mm3 Eos # (Auto) 0.2 (0-0.3) K/mm3 Baso # (Auto) 0.0 (0.0-0.1) K/mm3 Abs Immat Gran (auto) 0.02 (0.00-0.031) K/mm3 Absolute Neuts (auto) 6.4 (1.3-6.7) K/mm3 Absolute Nucleated RBC 0.000 (0.0-0.012) K/mm3 Nucleated RBC % 0.0 (0.0-0.2) % PT 13.8 (11.1-14.7) Seconds INR 1.0 APTT 24.9 (22.3-36.8) Seconds D-Dimer 0.61 H (<0.48) ug/mL Sodium 138 (137-145) mmol/L Potassium 4.1 (3.4-5.0) mmol/L Chloride 103 (98-107) mmol/L Carbon Dioxide 25 (22-30) mmol/L Anion Gap 10 (4-12) mmol/L BUN 12 D (9-20) mg/dL Creatinine 0.84 (0.7-1.3) mg/dL Estim Creat Clear Calc 146 ml/min Estimated GFR > 60 (59 - ) Glucose 95 (65-110) mg/dL Calcium 8.5 (8.4-10.2) mg/dL Total Bilirubin 0.4 (0.2-1.3) mg/dL AST 21 (17-59) U/L ALT 30 (6-50) U/L Alkaline Phosphatase 61 (38-126) U/L Troponin I < 0.012 < 0.012 (0.000-0.034) ng/mL Total Protein 7.0 (6.3-8.2) g/dL Albumin 4.1 (3.5-5.1) g/dL Lipase 72 (23-300) U/L TSH 2.140 (0.465-4.680) uIU/mL <Janet Aguirre, LEAD DATABASE ADMINISTRATOR - Last Filed: 05/04/24 12:12> Lab Results 05/04/24 05/04/24 05/04/24 Range/Units 09:47 11:59 15:02 WBC 8.6 (4.5-10.0) K/mm3 RBC 5.46 (4.6-6.20) M/mm3 Hgb 15.6 (14.0-18.0) g/dL Hct 46.3 (42.0-52.0) % MCV 84.8 (80-100) fl MCH 28.6 (26-34) pg MCHC 33.7 (32-36) g/dl RDW 13.0 (11.5-14.5) % Plt Count 417 H (150-375) k/mm3 MPV 8.9 (7.4-10.4) fl Immature Gran % (Auto) 0.2 (0-0.5) % Neut % (Auto) 74.7 H (45.5-73.1) % Lymph % (Auto) 17.2 L (18.3-44.2) % Robertson % (Auto) 5.0 (2.6-8.5) % Eos % (Auto) 2.4 (0-4.4) % Baso % (Auto) 0.5 (0.2-1.2) % Lymph # (Auto) 1.48 (0.9-3.2) K/mm3 Robertson # (Auto) 0.4 (0.1-0.6) K/mm3 Eos # (Auto) 0.2 (0-0.3) K/mm3 Baso # (Auto) 0.0 (0.0-0.1) K/mm3 Abs Immat Gran (auto) 0.02 (0.00-0.031) K/mm3 Absolute Neuts (auto) 6.4 (1.3-6.7) K/mm3 Absolute Nucleated RBC 0.000 (0.0-0.012) K/mm3 Nucleated RBC % 0.0 (0.0-0.2) % PT 13.8 (11.1-14.7) Seconds INR 1.0 APTT 24.9 (22.3-36.8) Seconds D-Dimer 0.61 H (<0.48) ug/mL Sodium 138 (137-145) mmol/L Potassium 4.1 (3.4-5.0) mmol/L Chloride 103 (98-107) mmol/L Carbon Dioxide 25 (22-30) mmol/L Anion Gap 10 (4-12) mmol/L BUN 12 D (9-20) mg/dL Creatinine 0.84 (0.7-1.3) mg/dL Estim Creat Clear Calc 146 ml/min Estimated GFR > 60 (59 - ) Glucose 95 (65-110) mg/dL Calcium 8.5 (8.4-10.2) mg/dL Total Bilirubin 0.4 (0.2-1.3) mg/dL AST 21 (17-59) U/L ALT 30 (6-50) U/L Alkaline Phosphatase 61 (38-126) U/L Troponin I < 0.012 < 0.012 (0.000-0.034) ng/mL Total Protein 7.0 (6.3-8.2) g/dL Albumin 4.1 (3.5-5.1) g/dL Lipase 72 (23-300) U/L TSH 2.140 (0.465-4.680) uIU/mL <Quinton Onofre MD - Last Filed: 05/04/24 17:10> Imaging Data Radiologist's impression: ITS Impressions Chest X-Ray 05/04/24 10:28 IMPRESSION: 1. Mild bibasilar atelectasis. Chest CTA 05/04/24 15:36 IMPRESSION: No pulmonary embolus. No thoracic aortic dissection. The lungs are clear. Upper Quadrant Ultrasound 05/04/24 16:05 IMPRESSION: Cholelithiasis, without ultrasound evidence of cholecystitis. Fatty infiltration of the liver. <Quinton Onofre MD - Last Filed: 05/04/24 17:10> ECG Data EKG #1: ECG completion date: 05/04/24 <Quinton Onofre MD - Last Filed: 05/04/24 17:10> ECG completion time: 09:42 <Quinton Onofre MD - Last Filed: 05/04/24 17:10> EKG Interpretation: normal rate (69), sinus rhythm, normal QRS, normal QT and NL axis < Quinton Onofre MD - Last Filed: 05/04/24 17:10> Discharge Plan Discharge Clinical Impression: Cholelithiasis <Janet Aguirre APRN - Last Filed: 05/04/24 12:12> Patient Disposition: Home, Self-Care <Janet Aguirre APRN - Last Filed: 05/04/24 12:12> Condition: Stable <Janet Aguirre APRN - Last Filed: 05/04/24 12:12> Instructions: Gallstones (ED), Low Fat Diet (ED) <Janet Aguirre APRN - Last Filed: 05/04/24 12:12> Additional Instructions: Return to the emergency department if you develop severe abdominal pain, severe nausea and vomiting to the point where you are unable to keep down fluids, if you develop chest pain or difficulty breathing, blood in your stool, dizziness or fainting, or if you develop any other new or concerning symptoms as these could be signs of more serious medical illness. Try to stay well hydrated. Follow-up with general surgery for evaluation of cholecystectomy. <Janet Aguirre APRN - Last Filed: 05/04/24 12:12> Patient Language: Occitan <Janet Aguirre APRN - Last Filed: 05/04/24 12:12> Prescriptions: New hydrocodone-acetaminophen 5-325 mg tablet 1 tablet PO Q6H PRN (Reason: pain) Qty: 12 0RF ondansetron 4 mg tablet,disintegrating 4 mg PO Q6H PRN (Reason: nausea and vomiting) Qty: 10 0RF No Action ondansetron 4 mg tablet,disintegrating 4 mg PO Q8H PRN (Reason: nausea and vomiting) Qty: 10 0RF <Janet Aguirre APRN - Last Filed: 05/04/24 12:12> Follow-up/Referrals: Kate Natarajan MD [Physician] - 1 Week UNKNOWN,DOCTOR [Primary Care Provider] - <Janet Aguirre APRN - Last Filed: 05/04/24 12:12>
[2024-05-04 12:26] LABS: Alanine Aminotransferase 30 U/L (6-50); Albumin Level 4.1 g/dL (3.5-5.1); Alkaline Phosphatase 61 U/L (38-126); Anion Gap 10 mmol/L (4-12); Aspartate Amino Transferase 21 U/L (17-59); Bilirubin,Total 0.4 mg/dL (0.2-1.3); Blood Urea Nitrogen 12 mg/dL (9-20); Calcium 8.5 mg/dL (8.4-10.2); Carbon Dioxide 25 mmol/L (22-30); Chloride 103 mmol/L (98-107); Estimated CRCL calculation 146 ml/min; Estimated Glomerular Filt Rate > 60; Glucose 95 mg/dL (65-110); Lipase 72 U/L (23-300); Potassium 4.1 mmol/L (3.4-5.0); Sodium 138 mmol/L (137-145)
[2024-05-04 12:36] LABS: Troponin I < 0.012 ng/mL (0.000-0.034)
[2024-05-04 12:43] LABS: D Dimer 0.61 ug/mL (<0.48)
--- OUTSIDE RECORDS SUMMARY | 2024-05-04 14:43 | XMS_ITS | Referral Summary ---
Author Organization [facility] [address] [facility] [address] Address [address] [place] [address] Care Team Providers Care Wireless Technician Name Role Phone Crystal Jeter MD Primary [...] Comments Blood Pressure 112/78 02/28/2023 10:07 AM ASSEMBLY LINE SUPERVISOR Pulse 86 02/28/2023 10:07 AM ASSEMBLY LINE SUPERVISOR Temperature 36.7 C (98.1 F) 11/26/2022 2:22 PM CDT Respiratory Rate 16 11/26/2022 2:22 PM CDT Oxygen Saturation 98% 02/28/2023 10: 07 AM ASSEMBLY LINE SUPERVISOR Inhaled Oxygen Concentration - - Weight 124.7 kg (274 lb 14.4 oz) 2023 10:07 AM ASSEMBLY LINE SUPERVISOR Height 177.8 cm (5' 10 ) 02/28/2023 10: 07 AM ASSEMBLY LINE SUPERVISOR Body Mass Index 39.44 02/28/2023 10:07 AM ASSEMBLY LINE SUPERVISOR Plan of Treatment [place] [address] [facility] H[facility] FORMERLY [facility] [employer] Address: [facility] [id number] [place] [address] [facility] [employer] Address: [facility] [id number] [place] [address] [facility] [employer] Address: [address] [place] [address] [facility] HMO Care Teams Wireless Technician Relationship Specialty Start Date End Date Crystal Jeter MD [address] [place] [address] PCP - General Family Medicine 11/07/22
--- OUTSIDE RECORDS SUMMARY | 2024-05-04 14:43 | XMS_ITS | Clinical Summary ---
Author Organization [facility] [address] [facility] [address] Address [address] [place] [place] [address] Care Team Providers Care Digital Coordinator Name Role Phone Crystal Jeter MD Primary [...] Comments Blood Pressure 112/78 02/28/2023 10:07 AM FAMILY DEVELOPMENT EXTENSION SPECIALIST Pulse 86 02/28/2023 10:07 AM FAMILY DEVELOPMENT EXTENSION SPECIALIST Temperature 36.7 C (98.1 F) 11/26/2022 2:22 PM CDT Respiratory Rate 16 11/26/2022 2:22 PM CDT Oxygen Saturation 98% 02/28/2023 10: 07 AM FAMILY DEVELOPMENT EXTENSION SPECIALIST Inhaled Oxygen Concentration - - Weight 124.7 kg (274 lb 14.4 oz) 2023 10:07 AM FAMILY DEVELOPMENT EXTENSION SPECIALIST Height 177.8 cm (5' 10 ) 02/28/2023 10: 07 AM FAMILY DEVELOPMENT EXTENSION SPECIALIST Body Mass Index 39.44 02/28/2023 10:07 AM FAMILY DEVELOPMENT EXTENSION SPECIALIST Plan of Treatment Health Maintenance Due Date [...] patient's age to complete this topic [place] [place] [address] HEALTHCARE HMO [facility] [employer] Address: [address] [place] [address] [facility] [employer] Address: [facility] [id number] [place] [address] [facility]ALTHCARE [facility] [employer] Address: [address] [place] [address] [facility] H[facility] Care Teams Digital Coordinator Relationship Specialty Start Date End Date Crystal Jeter MD [facility] [address] [place] [address] PCP - General Family Medicine 11/07/22
--- NOTE | 2024-05-04 15:04 | ECG_ITS ---
Test Date: 2024-05-04 15:09:01 Measurements Intervals [place] Rate: 67 P: 10 IA: 160 QRS: 45 QRSD: 94 T: 44 QT: 375 QTc: 398 Interpretive Statements SINUS RHYTHM Compared to ECG 05/04/2024 09:42:00 Sinus arrhythmia no longer present Electronically Signed On 05-05-2024 16:40:29 CDT by Sheng Story M.D.
[2024-05-04 15:32] LABS: Troponin I < 0.012 ng/mL (0.000-0.034)
[2024-05-04 16:04] VITALS: BP 126/80; PULSE 70; RESP 18; O2SAT 97
== END 2024-05-04 17:19 | disposition home or self-care (01) ==
PROVIDERS: Registered Nurse; Emergency Provider Emergency Medicine
DX: K80.20 Calculus of gallbladder without cholecystitis without obstruction (principal); K76.0 Fatty (change of) liver, not elsewhere classified
CPT/HCPCS: 36415; 71046; 71275; 76705; 80053; 83690; 84443; 84484; 85025; 85380; 85610; 85730; 93005; 99284; Q9967